=== PATIENT | female | born 1955 | race Caucasian/White ===

== ENCOUNTER 2018-09-25 10:53 | Emergency (ER) | payer OTHER ==
[~2018-09-25] VITALS: Ht 152.4 cm; Wt 71.8 kg
--- NOTE | 2018-09-25 11:40 | NUR ---
Pt to room from lobby.
--- NOTE | 2018-09-25 11:42 | NUR ---
PT REFUSING GOWN
--- NOTE | 2018-09-25 11:45 | NUR ---
62 Y/O FEMALE PRESENST TO ED WITH C/.O RIGHT EAR PAIN. "I HAVE SOME RIGHT EAR PAIN THAT IS GIVING ME A HEADACHE. I CAN HEAR A LITTLE IN MY RIGHT EAR. I HEAR THE OCEAN SOUND." NO ACUTE DISTRESS NOTED.
--- NOTE | 2018-09-25 11:46 | NUR ---
PT STATES SHE HAS HTN AND TAKES MEDICATION FOR IT. PER PT "I USUALLY RUN IN THE 140S." PT NOW 177/90
[2018-09-25] MEDS ORDERED: CARBAMIDE PEROXIDE EAR DROPS 6.5%, 15ML EACH EAR ONE (12:00)
[2018-09-25] MEDS ORDERED: CARBAMIDE PEROXIDE EAR DROPS 6.5%, 15ML ONE (12:11)
--- NOTE | 2018-09-25 12:45 | NUR ---
BEDSIDE REPORT TO [facility]
--- NOTE | 2018-09-25 13:09 | NUR ---
TEREZA RN. EAR DROPS ADMIN TO LEFT EAR BY THIS RN PER DR. SIMON. RIGHT EAR DROPS WERE ADMINISTERED BY ZHENG BANSAL PRIOR TO THIS RN RECEIVING REPORT AND RIGHT EAR WAS ALSO IRRIGATED WITH LARGE EARWAX REMOVAL PER SAMUEL AND ZHENG BANSAL.
--- NOTE | 2018-09-25 13:15 | NUR ---
PT REQUESTING PAIN MEDICATION, DR. SIMON AT BEDSIDE FOR RECHECK, DISCUSSING PAIN AND POC.
--- NOTE | 2018-09-25 13:20 | NUR ---
BREAK RN. LEFT EAR IRRIGATED, NO WAX REMOVAL, DISCUSSED WITH DR. SIMON "THAT'S OKAY THE LEFT EAR WASN'T BAD, IT WAS THE RIGHT ONE THAT NEEDED IT MOST, I WILL GET HERE READY FOR DISCHARGE." AWAITING PAIN MEDICATION ORDERS AND DISCHARGE PAPERS.
[2018-09-25] MEDS ORDERED: IBUPROFEN 600 MG TABLET PO ONE (13:30)
[2018-09-25 13:36] VITALS: BP 182/92
--- NOTE | 2018-09-25 13:37 | NUR ---
PT DECLINED IBUPROFEN, STATING SHE WILL TAKE SOME AT HOME WITH FOOD. PT GIVEN DC INSTRUCTIONS WITH QUESTIONS ANSWERED AND AMBULATED STEADY GAIT TO DC WINDOW
== END 2018-09-25 13:40 | disposition home or self-care (01) ==
LOC: ED 12:58
DX: H66.001 Acute suppurative otitis media without spontaneous rupture of ear drum, right ear (principal)
CPT/HCPCS: 69209; 99283